=== PATIENT | female | born 1960 | race Caucasian/White ===

== ENCOUNTER → 2016-11-18 | Outpatient (CLI) | payer BC ==
[~2016-11-18] MED LIST: NORCO 325 MG-51 TA1 PO; NORCO 325 MG-51 TAB PO; PREDNISONE20 M1 PO; TUMS REGULAR S500 MG PO; ZITHROMAX 250M250 MG PO
== END ==
LOC: RAD 09:21
DX: M54.2 Cervicalgia (principal); R51 Headache

== ENCOUNTER 2017-01-22 19:57 | Emergency (ER) | payer BC | END 2017-01-22 21:20 | disposition home or self-care (01) | LOC: ED 19:57 | DX: S50.12XA Contusion of left forearm, initial encounter (principal); Z86.2 Personal history of diseases of the blood and blood-forming organs and certain disorders involving the immune mechanism ==

== ENCOUNTER → 2017-02-17 | Outpatient (CLI) | payer BC ==
[2017-01-22 19:32] VITALS: BP 127/75
== END ==
LOC: RAD 10:53
DX: M25.511 Pain in right shoulder (principal); M19.011 Primary osteoarthritis, right shoulder

== ENCOUNTER 2017-08-29 21:39 | Emergency (ER) | payer BC ==
[2017-07-21 14:37] VITALS: BP 101/67
[~2017-08-29] VITALS: Ht 162.6 cm; Wt 75.0 kg
[~2017-08-29 21:39] MED LIST changes: +HYDROXYZINE HCL25 M1 PO; +LOTRISONE CREAM15 G1 TP; +TRIAMCINOLONE A15 GM TP
== END 2017-08-29 23:45 | disposition home or self-care (01) ==
LOC: ED 21:39
DX: S42.214A Unspecified nondisplaced fracture of surgical neck of right humerus, initial encounter for closed fracture (principal); S42.251A Displaced fracture of greater tuberosity of right humerus, initial encounter for closed fracture; W01.198A Fall on same level from slipping, tripping and stumbling with subsequent striking against other object, initial encounter; Y92.008 Other place in unspecified non-institutional (private) residence as the place of occurrence of the external cause
CPT/HCPCS: A4565; J0595; J1885

== ENCOUNTER 2017-08-31 17:07 | Emergency (ER) | payer BC ==
[~2017-08-31] VITALS: Ht 162.6 cm; Wt 77.3 kg
[2017-08-31 17:44] LABS: HEMOGLOBIN 13.5 g/dL (12.5-16.0); MEAN CELL VOLUME 86 fl (78-100); MEAN CORPUSCULAR HEMOGLOBIN 28 pg (27-31); MEAN CORPUSCULAR HGB CONC 32 g/dL (33-37); MEAN PLATELET VOLUME 10.9 fl (7.4-10.4); PLATELET COUNT 277 K/mm3 (130-400); RED BLOOD COUNT 4.86 M/mm3 (4.10-5.30); RED CELL DISTRIBUTION WIDTH 14.8 % (11.5-14.5); WHITE BLOOD COUNT 9.7 K/mm3 (4.8-10.8)
[2017-08-31 17:56] LABS: ALBUMIN 3.8 g/dL (3.5-5.0); BUN/CREATININE RATIO 9.7 (6.0-26.0); CALCIUM 9.3 mg/dL (8.4-10.2); POTASSIUM 3.7 mmol/L (3.6-5.0); TOTAL BILIRUBIN 0.8 mg/dL (0.2-1.3); TOTAL PROTEIN 7.7 g/dL (6.3-8.2)
[2017-08-31 18:05] LABS: LYMPHOCYTE 15 % (20-51); MONOCYTE 3 % (3-10); NEUTROPHILS 82 % (42-75)
[2017-08-31] MEDS ORDERED: PROMETHAZINE12.5 M5 PO (21:12)
[2017-08-31 21:22] VITALS: BP 106/62
[2017-09-01] MEDS ORDERED: NORCO 325 MG-51 TA1 PO (16:45)
== END 2017-08-31 21:22 | disposition home or self-care (01) ==
LOC: ED 17:07
PROVIDERS: Physician Assistant
DX: S42.201A Unspecified fracture of upper end of right humerus, initial encounter for closed fracture (principal); R11.2 Nausea with vomiting, unspecified; F32.9 Major depressive disorder, single episode, unspecified; R45.851 Suicidal ideations; W19.XXXA Unspecified fall, initial encounter
CPT/HCPCS: J1885; J2405; J2550; J3010; J7030

== ENCOUNTER 2017-09-01 16:33 | Observation (INO) | payer BC ==
[~2017-09-01] VITALS: Ht 162.6 cm; Wt 85.1 kg
[~2017-09-01 16:33] MED LIST changes: +PROMETHAZINE12.5 M5 PO
[2017-09-01] MEDS ORDERED: NORCO 325 MG-51 TA1 PO (16:45)
--- NOTE | 2017-09-01 20:10 | NUR ---
PATIENT ADMITTED OBSERVATIONS TO ROOM 206. THIS NURSE TO WHEEL PATIENT FROM ED TO ROOM 206 VIA WHEELCHAIR BECAUSE PATIENT REPORTS HER SHOULDER IS HURTING TOO MUCH AND SHE CANNOT WALK. PATIENT IS A/O X4. RATING PAIN 10/10 IN RIGHT SHOULDER, PILLOW PLACED BEHIND PATIENT RIGHT SHOULDER FOR COMFORT. LUNGS CTA, DENIES COUGH OR SHORTNESS OF BREATH. CALL LIGHT WITHIN REACH AND BED ALARM ON. PATIENT IS OBSERVED TO BE COMFORTABLE WHILE LAYING SUPINE WITH HE EYES CLOSED AT THIS TIME.
[2017-09-01 20:11] VITALS: BP 109/72
[2017-09-01 20:56] VITALS: BP 109/72
--- NOTE | 2017-09-01 21:00 | NUR ---
FINE J[employer]EL[employer] SALES ASSOCIATE TO REPORT PATIENT'S O2 SATURATION AT 87%. 1 L O2 ADMINISTERED VIA NASAL CANNULA AT THIS TIME.
[2017-09-01 22:43] VITALS: BP 107/54
--- NOTE | 2017-09-01 23:56 | NUR ---
2345 Awake and a/o x 3. Bed alarm set. IV fluids of NS infusing at 125mls/hr. Head of bed elevated and call light with in reach of pt. C/o's of right shoulder pain. Rates pain 10 out 10. Offered norco 2 PO, 5mg each. Pt stated, "No I can't take those, that's what ended me up in the hospital in the first place. It made me very sick to my stomach and made me want to kill myself. Reviewed pain medication options. Offered pt ultram or fentanyl. Pt stated "I'll take the fentanyl." 2347 Fentanyl 25mcgs given IV. Offered ice pack, pt declined. Denies nausea. 5 Sa02 92% on room air. Heart rated, 71. Respirations 18.
--- NOTE | 2017-09-02 00:56 | NUR ---
0050 Pt requested Ultram. Rated pain 8 out 10. 0052 after Ultram scanned and offered to pt, Pt stated, "I can't take that, I'll throw up." Asked pt if she felt nauseated, pt stated "yes." Offered phenergan IV, pt refused, stated "I'll just tuff it out." Offered ice pack to shoulder, pt refused.
--- NOTE | 2017-09-02 01:00 | NUR ---
0050 Pt requested ultram for right shoulder pain. Rated pain 8 out 10. Pt drowsy, eyes closed when pt responsing to me. 0052 Ultram scanned into [employer]. Offered to pt. Pt refused, stating "I don't want that, I can't take that, i'll throw up." Asked pt if she felt nauseated. Pt stated "yes." Offered phenergan, pt stated, "i'll just tuff it out." Offered ice pack pt refused.
[2017-09-02 03:28] VITALS: BP 110/67
[2017-09-02 06:29] VITALS: BP 117/71
--- NOTE | 2017-09-02 07:10 | NUR ---
REPORT RECEIVED FROM MINOO FOOTE.
--- NOTE | 2017-09-02 07:40 | NUR ---
GENERAL ADJUSTER REPORTS PATIENT REQUESTED PAIN MEDICATION. PATIENT LYING IN BED WITH EYES CLOSED WHEN THIS NURSE ENTERED ROOM. PATIENT'S SHIFT ASSESSMENT COMPLETE. PATIENT ALERT AND ORIENTED X4. REPORTS HAVING PAIN RATED 9/10 IN RIGHT SHOULDER. REPORTS PAIN IS CONSTANT AND WORSENS WITH MOVEMENT. WHEN ASKED TO DESCRIBE PAIN STATES "IT'S THERE" PATIENT DENIES ANY SHORTNESS OF BREATH OR DIFFICULTIES BREATHING. PATIENT ON OXYGEN VIA NASAL CANNULA AT 1L. OXYGEN REMOVED AT THIS TIME. REPORTS THAT SHE HAS NOT HAD A BOWEL MOVEMENT SINCE WEDNESDAY BUT THAT SHE HASN'T EATEN ANYTHING SINCE WEDNESDAY. PATIENT HAS NON PRODUCTIVE COUGH. REPORTS THAT COUGH IS NOT NEW THAT SHE HAS HAD IT FOR A COUPLE OF WEEKS. HAS IROM BRACE IN PLACE TO RIGHT ARM. PATIENT HAS [facility] APPT AT 1400 TODAY. THIS NURSE SPOKE WITH PATIENT ABOUT PAIN MANAGEMENT. EDUCATED THAT THE GOAL IS TRY TO GET HER OFF IV PAIN MEDICATION AND GET HER SOMETHING ORAL THAT HELPS WITH HER PAIN BECAUSE SHE IS GOING TO BE LEAVING TODAY. PATIENT STATES "I CAN'T TAKE ANYTHING ORAL BECAUSE I THROW UP EVERYTHING I KEEP TRYING TO TELL EVERYONE THAT BUT NOBODY LISTENS." PATIENT OFFERED ZOFRAN PRIOR TO MEDICATION. STATES "ZOFRAN DOESN'T HELP ME BUT JUST DO WHATEVER JUST LONG YOU KNOW I'M GONNA THROW UP EVERY WHERE" PATIENT BECOMES TEARFUL STATES "THIS JUST MADE ME REALLY UPSET" THIS NURSE SPOKE WITH PATIENT AND TOLD HER THAT THIS NURSE WAS NOT TRYING TO UPSET HER THAT BETTER PAIN MANAGEMENT WAS THE GOAL. LORENE GOMEZ NOTIFIED. PATIENT'S CALL LIGHT WITHIN REACH. BED ALARM ON.
--- NOTE | 2017-09-02 07:45 | NUR ---
LORENE GOMEZ IN TO SEE PATIENT.
--- NOTE | 2017-09-02 08:15 | NUR ---
THIS NURSE IN TO GIVE MEDICATIONS. 25 MCG IV FENTANYL GIVEN. REMOVED OLD 25 MCG FENTANYL PATCH THAT WAS IN PLACE TO LEFT BREAST AND PLACED NEW 50 MCG PATCH TO LEFT SHOULDER. PATIENT EDUCATED ON FENTANYL PATCH. PATIENT PROVIDED ORAL PHENERGAN. WILL CONTINUE TO MONITOR.
--- NOTE | 2017-09-02 09:00 | NUR ---
PATIENT'S SP02 ON ROOM AIR 90%.
--- NOTE | 2017-09-02 09:30 | NUR ---
THIS NURSE IN TO REASSESS PATIENT'S PAIN. PATIENT SITTING AWAKE IN BED WITH HEAD OF BED ELEVATED. WHEN ASKED HOW HER PAIN IS SHRUGS SHOULDER AND STATES "BETTER". RATES PAIN 7/10. CALL LIGHT WITHIN REACH. BED ALARM ON.
[2017-09-02] MEDS ORDERED: DURAGESIC1 EAC1 TD (09:49)
[2017-09-02 10:53] VITALS: BP 127/60
--- NOTE | 2017-09-02 12:45 | NUR ---
PATIENT PROVIDED DISCHARGE INSTRUCTIONS AT THIS TIME. PATIENT'S AT BEDSIDE. EDUCATED ON FENTANYL PATCH. PATIENT TO GO [facility]. VERBALIZES UNDERSTANDING OF INSTRUCTIONS. DENIES ANY QUESTIONS FOR THE NURSE AT THIS TIME.
--- NOTE | 2017-09-02 12:51 | NUR ---
PATIENT LEFT FACILITY VIA WHEELCHAIR TO POV ACCOMPANIED BY THIS NURSE AND PATIENT'S . PERSONAL BELONGINGS AND DISCHARGE PAPERWORK SENT WITH PATIENT.
== END 2017-09-02 12:51 | disposition home or self-care (01) ==
LOC: ED 16:33 → MED/SURG 19:50
PROVIDERS: ADMIT Nurse Practitioner Family
DX: S42.201A Unspecified fracture of upper end of right humerus, initial encounter for closed fracture (principal); R11.2 Nausea with vomiting, unspecified; T39.1X5A Adverse effect of 4-Aminophenol derivatives, initial encounter; Z88.1 Allergy status to other antibiotic agents; Z88.5 Allergy status to narcotic agent; F17.210 Nicotine dependence, cigarettes, uncomplicated; W19.XXXA Unspecified fall, initial encounter; Y92.008 Other place in unspecified non-institutional (private) residence as the place of occurrence of the external cause
CPT/HCPCS: G0378; J2405; J2550; J3010; J7030

== ENCOUNTER → 2017-10-05 | Outpatient (CLI) | payer BC ==
[~2017-10-05] MED LIST changes: +DURAGESIC1 EAC1 TD
[2017-10-05 15:56] LABS: ALBUMIN 4.1 g/dL (3.5-5.0); BUN/CREATININE RATIO 9.3 (6.0-26.0); CALCIUM 9.8 mg/dL (8.4-10.2); POTASSIUM 3.5 mmol/L (3.6-5.0); TOTAL BILIRUBIN 0.7 mg/dL (0.2-1.3); TOTAL PROTEIN 8.5 g/dL (6.3-8.2)
[2017-10-05 15:57] LABS: EOS # 0.1 (0.04-0.40); EOS % 1.5 % (1.0-5.0); HEMATOCRIT 40.7 % (37.0-47.0); MEAN CELL VOLUME 86 fl (78-100); MEAN CORPUSCULAR HEMOGLOBIN 25 pg (27-31); MEAN CORPUSCULAR HGB CONC 30 g/dL (33-37); MEAN PLATELET VOLUME 10.1 fl (7.4-10.4); MONO # 0.5 (0.20-0.80); NEU # 5.9 (1.40-6.50); PLATELET COUNT 383 K/mm3 (130-400); RED BLOOD COUNT 4.73 M/mm3 (4.10-5.30); RED CELL DISTRIBUTION WIDTH 15.4 % (11.5-14.5); WHITE BLOOD COUNT 7.5 K/mm3 (4.8-10.8)
[2017-10-12 13:51] LABS: HEPATITIS B SURFACE ANTIBODY <2.0 (()); QUANTIFERON TB GOLD Negative (Negative)
== END ==
LOC: LAB 15:06
DX: Z79.899 Other long term (current) drug therapy (principal)

== ENCOUNTER 2017-11-03 13:00 | Outpatient (RCR) | payer BC | END 2018-01-03 | disposition home or self-care (01) | LOC: PT | DX: S42.201D Unspecified fracture of upper end of right humerus, subsequent encounter for fracture with routine healing (principal); M75.101 Unspecified rotator cuff tear or rupture of right shoulder, not specified as traumatic; W18.30XD Fall on same level, unspecified, subsequent encounter ==

== ENCOUNTER → 2017-11-03 | Outpatient (CLI) | payer BC | LOC: RAD 09:54 | DX: Z09 Encounter for follow-up examination after completed treatment for conditions other than malignant neoplasm (principal); Z96.611 Presence of right artificial shoulder joint ==